=== PATIENT | female | born 1985 | race Caucasian/White ===

== ENCOUNTER 2018-02-20 08:58 | Inpatient (IN) ==
[2018-02-20] MEDS ORDERED: Chlorhexidine Gluconate 2% 1 Pack (2 Cloths) TOPICAL SCH (09:30)
[2018-02-20] MEDS ORDERED: Metoprolol Tartrate 25 MG Tablet PO SCH (09:30)
[2018-02-20] MEDS ORDERED: GENTAMICIN IV.SIG SCH (10:00)
[2018-02-20] MEDS ORDERED: SODIUM CHLOR 0.9% IV.SIG SCH (10:00)
[2018-02-20] MEDS ORDERED: Sodium Chlor 0.9% Inj 500 ML IV.SIG SCH (10:00)
[2018-02-20] MEDS ORDERED: Morphine Inj 4 MG/ML Vial ONE (10:27)
[2018-02-20] MEDS ORDERED: Morphine Inj 4 MG/ML Vial IV.PUSH ONE (10:33)
[2018-02-20] MEDS ORDERED: HYDROmorphone PF Inj 2 MG/ML Vial IV.PUSH PRN (10:58)
[2018-02-20] MEDS: Ciprofloxacin 400 MG/200 ML 400 MG/200 ML PIGGYBACK IV.SIG SCH ×2 (11:00→20:02)
[2018-02-20] MEDS: Sodium Chloride 0.45 % Inj 1,000 ML IV.CONT SCH ×2 (11:15→20:02)
[2018-02-20 12:19] LABS: Hematocrit 37.7 % (35.0-46.0); Hemoglobin 12.2 gm/dL (11.6-15.3); Mean Corpuscular HGB Conc 32.5 % (32.0-36.0); Mean Corpuscular Hemoglobin 28.4 pg (27.0-34.0); Mean Corpuscular Volume 87.6 fL (80.0-100.0); Mean Platelet Volume 10.7 fL (7.0-11.0); Platelet Count 166 th/mm3 (150-450); Red Blood Count 4.31 mil/mm3 (4.00-5.30); Red Cell Distribution Width 14.3 % (11.6-17.2); White Blood Count 12.8 th/mm3 (4.0-11.0)
[2018-02-20 12:39] LABS: Anion Gap 9 meq/L (5-15); Blood Urea Nitrogen 7 mg/dL (7-18); Calcium 8.5 mg/dL (8.5-10.1); Carbon Dioxide 24.5 meq/L (21.0-32.0); Chloride 100 meq/L (98-107); Glomerular Filtration Rate Greater Than 89 mL/min (>89); Glucose,Random 110 mg/dL (74-106); Sodium 133 meq/L (136-145)
[2018-02-20 12:41] LABS: Potassium 4.4 meq/L (3.5-5.1)
[2018-02-20] MEDS: Acetaminophen 325 MG Tablet PO PRN (23:33)
[2018-02-21] MEDS: Sodium Chloride 0.45 % Inj 1,000 ML IV.CONT SCH ×3 (04:02→19:34)
[2018-02-21] MEDS: Ciprofloxacin 400 MG/200 ML 400 MG/200 ML PIGGYBACK IV.SIG SCH ×2 (09:12→20:18)
[2018-02-21 11:31] LABS: Baso % (Auto) 0.4 % (0.0-2.0); Eos % (Auto) 0.2 % (0.0-4.0); Hematocrit 34.9 % (35.0-46.0); Hemoglobin 11.4 gm/dL (11.6-15.3); Lymph # (Auto) 1.4 th/mm3 (1.0-4.8); Lymph % (Auto) 16.8 % (9.0-44.0); Mean Corpuscular HGB Conc 32.7 % (32.0-36.0); Mean Corpuscular Hemoglobin 28.5 pg (27.0-34.0); Mean Corpuscular Volume 87.1 fL (80.0-100.0); Mean Platelet Volume 10.1 fL (7.0-11.0); Mono # (Auto) 1.2 th/mm3 (0.0-0.9); Neut # (Auto) 5.8 th/mm3 (1.8-7.7); Neut % (Auto) 68.6 % (16.0-70.0); Platelet Count 187 th/mm3 (150-450); Red Cell Distribution Width 14.5 % (11.6-17.2); White Blood Count 8.5 th/mm3 (4.0-11.0)
--- NOTE | 2018-02-21 14:27 | P.PNURO ---
Subjective Patient symptoms today: Pt seen and examined. Fever overnight. Still not feeling well. UCx pending Objective Vital Signs: Vital Signs 02/20/18 14:31 02/20/18 20:38 02/21/18 00:05 Temperature 99.6 F 100.2 F H Pulse Rate 93 H 96 H Respiratory Rate 16 16 18 Blood Pressure 106/55 L 123/57 L Pulse Oximetry 96 94 L 02/21/18 00:09 02/21/18 01:23 02/21/18 04:34 Temperature 102.6 F H 101.1 F H 98.6 F Pulse Rate 20 L 85 Respiratory Rate 20 20 Blood Pressure 131/70 118/56 L Pulse Oximetry 98 98 02/21/18 06:05 02/21/18 08:00 02/21/18 12:00 Temperature 97.8 F 98.5 F Pulse Rate 83 87 Respiratory Rate 20 19 19 Blood Pressure 100/58 L 119/75 Pulse Oximetry 99 99 Intake & Output 02/20/18 02/21/18 02/21/18 18:59 06:59 18:59 Intake Total 456 / 456 2680 / 2680 Output Total 350 / 350 350 / 350 150 / 150 Balance 106 / 106 2330 / 2330 -150 / -150 Weight 129.9 kg 126.5 kg Intake: IV 256 / 256 2200 / 2200 1/2 Normal Saline Inj 1,000 ML 2000 / 2000 @ 125 mls/hr IV.CONT .Q8H [facility] Rx#:[id number] Ampicillin Inj 1,000 MG In NS 100 / 100 Inj 100 ML @ 400 mls/hr IV.SIG [employer] [facility] Rx#:[id number] Cipro 400 MG/200 ML Inj 400 mg 200 / 200 In 200 ml @ 200 mls/hr IV.SIG Q12HR [facility] Rx#:[id number] Gentamicin Inj 240 MG In NS Inj 106 / 106 100 ML @ 212 mls/hr IV.SIG [employer] [facility] Rx#:[id number] LR 1000 mL Inj 1,000 ML @ 30 50 / 50 mls/hr IV.SIG .Q24H [facility] Rx#: [id number] Oral 200 / 200 480 / 480 Output: Wound Drainage 350 / 350 350 / 350 150 / 150 Right Lower Back 350 / 350 350 / 350 150 / 150 Other: # Voids 2 Date of Last Bowel Movement 02/19/18 # Bowel Movements 0 Weight On Admission 129.9 kg Result Diagrams: 02/21/18 10:41 02/20/18 11:40 Medications and IVs: Active Medications Generic Name Dose Route Start Last Admin Trade Name Freq PRN Reason Stop Dose Admin Acetaminophen 650 mg 02/20/18 11:01 02/20/18 23:33 Tylenol PO 02/24/18 23:59 650 mg Q4H PRN Administration temp >100.6 Chlorhexidine Gluconate 3 pack 02/20/18 09:30 02/20/18 09:20 Chlorhexidine 2% Cloth TOPICAL 02/23/18 09:30 3 pack [employer] [facility] Administration Hydromorphone HCl 2 mg 02/20/18 10:58 02/20/18 23:34 Dilaudid Pf Inj IV.PUSH 02/23/18 23:59 2 mg Q4H PRN Administration PAIN 6-10;IF UNABLE TO TAKE PO Ampicillin Sodium 1,000 mg/ 100 mls @ 400 mls/hr 02/20/18 10:00 02/20/18 10: 52 Sodium Chloride IV.SIG Infused [employer] [facility] Infusion Gentamicin Sulfate 240 mg/ 106 mls @ 212 mls/hr 02/20/18 10:00 02/20/18 10:45 Sodium Chloride IV.SIG Infused [employer] [facility] Infusion Lactated Ringer's 1,000 mls @ 30 mls/hr 02/20/18 09:30 02/20/18 14:52 Lr 1000 Ml Inj IV.SIG 02/23/18 09:30 Infused .Q24H [facility] Sodium Chloride 500 mls @ 30 mls/hr 02/20/18 10:00 Ns Inj IV.SIG 02/23/18 09:30 .Q10H [facility] Ciprofloxacin/Dextrose 400 mg in 200 mls @ 200 mls/hr 02/20/18 11:00 09:12 Cipro 400 Mg/200 Ml Inj IV.SIG 100 mls/hr Q12HR [facility] Administration Sodium Chloride 1,000 mls @ 125 mls/hr 02/20/18 11:15 02/21/18 04:02 1/2 Normal Saline Inj IV.CONT 125 mls/hr .Q8H [facility] Administration Metoprolol Tartrate 25 mg 02/20/18 09:30 02/20/18 09:54 Lopressor PO 02/23/18 09:30 Not Given [employer] [facility] Oxycodone/Acetaminophen 1 tab 02/20/18 10:59 02/21/18 14:24 Percocet 7.5/325 Mg PO 02/23/18 23:59 1 tab Q4H PRN Administration ABDOMINAL PAIN Povidone Iodine 1 applicatio 02/20/18 09:30 02/20/18 09:54 Betadine 5% Antisepsis Kit EACH NARE 02/23/18 09:30 1 applicatio [employer] [facility] Administration Objective Remarks: Abd:soft,nt,nd Right PCNT: blood tinged. Assessment and Plan - Plan 32 y.o female with s/p right PCNT with fever Continue IV ABx
[2018-02-22] MEDS: Sodium Chloride 0.45 % Inj 1,000 ML IV.CONT SCH ×4 (00:38→22:04)
[2018-02-22] MEDS: Ciprofloxacin 400 MG/200 ML 400 MG/200 ML PIGGYBACK IV.SIG SCH (08:08)
--- NOTE | 2018-02-22 13:28 | P.PNURO ---
Subjective Patient symptoms today: Complains of nausea Reports right nephrostomy tube has been draining well with clearing output Denies fever overnight Objective Vital Signs: Vital Signs 02/21/18 16:00 02/21/18 20:00 02/22/18 00:00 Temperature 97.9 F 99 F 99.1 F Pulse Rate 80 82 84 Respiratory Rate 19 18 20 Blood Pressure 116/54 L 115/57 L 109/57 L Pulse Oximetry 99 97 96 02/22/18 04:00 02/22/18 08:00 02/22/18 12:00 Temperature 98.4 F 97.7 F 97.5 F L Pulse Rate 73 117 H 72 Respiratory Rate 16 20 18 Blood Pressure 111/61 123/72 124/76 Pulse Oximetry 97 99 99 Intake & Output 02/21/18 02/22/18 02/22/18 18:59 06:59 18:59 Intake Total 2120 / 2120 1935 / 1935 1400 / 1400 Output Total 300 / 300 200 / 200 Balance 1820 / 1820 1735 / 1735 1400 / 1400 Weight 129.6 kg Intake: IV 1000 / 1000 1200 / 1200 1400 / 1400 1/2 Normal Saline Inj 1,000 ML 1000 / 1000 1000 / 1000 1000 / 1000 @ 125 mls/hr IV.CONT .Q8H [facility] Rx#:[id number] Cipro 400 MG/200 ML Inj 400 mg 200 / 200 400 / 400 In 200 ml @ 200 mls/hr IV.SIG Q12HR [facility] Rx#:[id number] Oral 1120 / 1120 735 / 735 Output: Wound Drainage 300 / 300 200 / 200 Right Lower Back 300 / 300 200 / 200 Other: # Voids 8 2 Date of Last Bowel Movement 02/19/18 Result Diagrams: 02/21/18 10:41 02/20/18 11:40 Other Results: Urine culture ESBL positive E. coli Medications and IVs: Active Medications Generic Name Dose Route Start Last Admin Trade Name Freq PRN Reason Stop Dose Admin Acetaminophen 650 mg 02/20/18 11:01 02/20/18 23:33 Tylenol PO 02/24/18 23:59 650 mg Q4H PRN Administration temp >100.6 Chlorhexidine Gluconate 3 pack 02/20/18 09:30 02/20/18 09:20 Chlorhexidine 2% Cloth TOPICAL 02/23/18 09:30 3 pack [employer] [facility] Administration Hydromorphone HCl 2 mg 02/20/18 10:58 02/20/18 23:34 Dilaudid Pf Inj IV.PUSH 02/23/18 23:59 2 mg Q4H PRN Administration PAIN 6-10;IF UNABLE TO TAKE PO Lactated Ringer's 1,000 mls @ 30 mls/hr 02/20/18 09:30 02/22/18 09:43 Lr 1000 Ml Inj IV.SIG 02/23/18 09:30 Not Given .Q24H [facility] Sodium Chloride 500 mls @ 30 mls/hr 02/20/18 10:00 Ns Inj IV.SIG 02/23/18 09:30 .Q10H [facility] Sodium Chloride 1,000 mls @ 125 mls/hr 02/20/18 11:15 02/22/18 09:45 1/2 Normal Saline Inj IV.CONT Infused .Q8H [facility] Infusion Ertapenem 1,000 mg/ Sodium 100 mls @ 100 mls/hr 02/22/18 14:00 Chloride IV.SIG Q24H [facility] Metoprolol Tartrate 25 mg 02/20/18 09:30 02/20/18 09:54 Lopressor PO 02/23/18 09:30 Not Given [employer] [facility] Ondansetron HCl 4 mg 02/22/18 12:49 Zofran Inj IV.PUSH Q6H PRN NAUSEA Oxycodone/Acetaminophen 1 tab 02/20/18 10:59 02/22/18 08:08 Percocet 7.5/325 Mg PO 02/23/18 23:59 1 tab Q4H PRN Administration ABDOMINAL PAIN Povidone Iodine 1 applicatio 02/20/18 09:30 02/20/18 09:54 Betadine 5% Antisepsis Kit EACH NARE 02/23/18 09:30 1 applicatio [employer] [facility] Administration Objective Remarks: Abd:soft,nt,nd Right PCNT: Usha Extremities well-perfused, nontender Assessment and Plan - Assessment (1) Renal calculus, right Code(s): N20.0 - Calculus of kidney Status: Acute - Plan Urologic impression: 32 y.o female with right renal calculus s/p right PCNT with ESBL positive E. coli infection. Plan: 1. Ertapenem 1 g IV every 24 hours 2. DC Cipro, ampicillin and gentamicin 3. Continue with analgesic medication 4. Continue with antinausea medication 5. Continue with right nephrostomy tube to gravity drainage 6. Will eventually require right percutaneous nephrolithotomy.
[2018-02-23] MEDS: Sodium Chloride 0.45 % Inj 1,000 ML IV.CONT SCH ×3 (05:25→21:38)
--- NOTE | 2018-02-23 10:51 | P.PNURO ---
Subjective Patient symptoms today: Reports feeling much better today. Denies nausea/vomiting Has been afebrile. Reports right nephrostomy tube has been draining well. Objective Vital Signs: Vital Signs 02/22/18 12:00 02/22/18 13:35 02/22/18 16:00 Temperature 97.5 F L 97.7 F Pulse Rate 72 70 Respiratory Rate 18 17 18 Blood Pressure 124/76 121/71 Pulse Oximetry 99 100 02/22/18 23:07 02/23/18 00:00 02/23/18 08:00 Temperature 98.1 F 98.5 F 97.3 F L Pulse Rate 75 86 58 L Respiratory Rate 18 20 16 Blood Pressure 106/66 126/59 L 116/66 Pulse Oximetry 100 100 100 Intake & Output 02/22/18 02/23/18 02/23/18 18:59 06:59 18:59 Intake Total 2700 / 2700 2000 / 1999 Output Total 210 / 210 200 / 200 Balance 2490 / 2490 1800 / 1800 Weight 132.9 kg Intake: IV 1500 / 1500 1999 / 1999 1/2 Normal Saline Inj 1,000 ML 1000 / 1000 2000 / 2000 @ 125 mls/hr IV.CONT .Q8H [facility] Rx#:[id number] Cipro 400 MG/200 ML Inj 400 mg 400 / 400 In 200 ml @ 200 mls/hr IV.SIG Q12HR [facility] Rx#:[id number] INVanz Inj 1,000 MG In NS Inj 100 / 100 100 ML @ 100 mls/hr IV.SIG Q24H [facility] Rx#:[id number] Oral 1200 / 1200 Output: Wound Drainage 210 / 210 200 / 200 Right Lower Back 210 / 210 200 / 200 Other: # Voids 4 2 Date of Last Bowel Movement 02/19/18 02/18/18 Result Diagrams: 02/21/18 10:41 02/20/18 11:40 Medications and IVs: Active Medications Generic Name Dose Route Start Last Admin Trade Name Freq PRN Reason Stop Dose Admin Acetaminophen 650 mg 02/20/18 11:01 02/20/18 23:33 Tylenol PO 02/24/18 23:59 650 mg Q4H PRN Administration temp >100.6 Hydromorphone HCl 2 mg 02/20/18 10:58 02/20/18 23:34 Dilaudid Pf Inj IV.PUSH 02/23/18 23:59 2 mg Q4H PRN Administration PAIN 6-10;IF UNABLE TO TAKE PO Sodium Chloride 1,000 mls @ 125 mls/hr 02/20/18 11:15 02/23/18 05:25 1/2 Normal Saline Inj IV.CONT 125 mls/hr .Q8H [facility] Administration Ertapenem 1,000 mg/ Sodium 100 mls @ 100 mls/hr 02/22/18 14:00 02/22/18 15:01 Chloride IV.SIG Infused Q24H [facility] Infusion Ondansetron HCl 4 mg 02/22/18 12:49 Zofran Inj IV.PUSH Q6H PRN NAUSEA Oxycodone/Acetaminophen 1 tab 02/20/18 10:59 02/23/18 05:23 Percocet 7.5/325 Mg PO 02/23/18 23:59 1 tab Q4H PRN Administration ABDOMINAL PAIN Objective Remarks: Abd:soft,nt,nd Right PCNT: Usha Extremities well-perfused, nontender Assessment and Plan - Assessment (1) Renal calculus, right Code(s): N20.0 - Calculus of kidney Status: Acute - Plan Urologic impression: 32 y.o female with right renal calculus s/p right PCNT with ESBL positive E. coli infection. Plan: 1. Continue with ertapenem 1 g IV every 24 hours 2. Continue with analgesic medication 3. Continue with antinausea medication 4. Continue with right nephrostomy tube to gravity drainage 5. Will eventually require right percutaneous nephrolithotomy.
[2018-02-24] MEDS: Sodium Chloride 0.45 % Inj 1,000 ML IV.CONT SCH ×2 (06:26→15:17)
--- NOTE | 2018-02-24 08:23 | P.PNURO ---
Subjective Patient symptoms today: Pt is much better today. UCx with ESBL E.coli positive Objective Vital Signs: Vital Signs 02/23/18 12:00 02/23/18 16:00 02/23/18 20:00 Temperature 97.5 F L 97.5 F L 97.9 F Pulse Rate 73 72 73 Respiratory Rate 16 16 18 Blood Pressure 121/79 131/62 115/59 L Pulse Oximetry 100 100 98 02/24/18 00:00 Temperature 97.7 F Pulse Rate 66 Respiratory Rate 18 Blood Pressure 110/59 L Pulse Oximetry 98 Intake & Output 02/23/18 02/24/18 02/24/18 18:59 06:59 18:59 Intake Total 2500 / 2500 1999 Output Total 225 / 225 210 / 210 Balance 2275 / 2275 1999 -210 / -210 Weight 133.9 kg Intake: IV 1100 / 1100 1999 1/2 Normal Saline Inj 1,000 ML 1000 / 1000 1999 @ 125 mls/hr IV.CONT .Q8H [facility] Rx#:[id number] INVanz Inj 1,000 MG In NS Inj 100 / 100 100 ML @ 100 mls/hr IV.SIG Q24H [facility] Rx#:[id number] Oral 1400 / 1400 Output: Wound Drainage 225 / 225 210 / 210 Right Lower Back 225 / 225 210 / 210 Other: # Voids 6 1 1 Result Diagrams: 02/21/18 10:41 02/20/18 11:40 Medications and IVs: Active Medications Generic Name Dose Route Start Last Admin Trade Name Freq PRN Reason Stop Dose Admin Acetaminophen 650 mg 02/20/18 11:01 02/20/18 23:33 Tylenol PO 02/24/18 23:59 650 mg Q4H PRN Administration temp >100.6 Sodium Chloride 1,000 mls @ 125 mls/hr 02/20/18 11:15 02/24/18 06:26 1/2 Normal Saline Inj IV.CONT 125 mls/hr .Q8H [facility] Administration Ertapenem 1,000 mg/ Sodium 100 mls @ 100 mls/hr 02/22/18 14:00 02/23/18 15:17 Chloride IV.SIG Infused Q24H [facility] Infusion Ondansetron HCl 4 mg 02/22/18 12:49 Zofran Inj IV.PUSH Q6H PRN NAUSEA Objective Remarks: Abd:soft,nt,nd Right PCNT: Usha Extremities well-perfused, nontender Abd:soft,nt,nd Assessment and Plan - Assessment (1) Renal calculus, right Code(s): N20.0 - Calculus of kidney Status: Acute - Plan Urologic impression: 32 y.o female with right renal calculus s/p right PCNT with ESBL positive E. coli infection. Plan: 1. Continue with ertapenem 1 g IV every 24 hours 2. Continue with analgesic medication 3. Continue with antinausea medication 4. Continue with right nephrostomy tube to gravity drainage 5. Will eventually require right percutaneous nephrolithotomy. 02/24 E. coli ESBL IR for picc line ID consult today
--- NOTE | 2018-02-24 11:59 | P.DCO ---
- Diagnosis (1) Renal calculus, right Status: Acute (2) Right kidney stone Status: Acute - Physical Therapy Order: Evaluate and treat - Occupational Therapy Order: Evaluate and treat - Home Health Nursing Order: Wound care and dressing changes, IV medication administration Instructions: change dressing every other day to PCNT Invanz 1 gram IV Q24 hours for 10 days - Home Health Aide Order: To assist in: Bathing and personal care - Case Management Consult Yes - Certification I have seen patient Linda Bellamy on 02/24/18. My clinical findings support the need for the requested home health care services because: Care of Right nephrostomy tube Administration of IV ABX Infection with risk of complications I certify that my clinical findings support that this patient is homebound because: Finished in hospital care Post-op weakness
--- NOTE | 2018-02-24 13:31 | P.CONID ---
History of Present Illness Service: ID Consult date: 02/24/18 Requesting Physician: Eddi Hi Reason for Consult: ESBL+ E.coli UTI Primary Care Provider: No Primary Care Physician History of Present Illness: 32 yo female with nephrolithiasis, recurrent UTIs and R kidney staghorn stone s/p R nephrostomy placement 1 week ago was supposed to have lithothripsy on but developped high fevers up to 102 and procedure was cancelled Pt also c/o R side pain she was admitted to the hospital, UA abnormal with , urine culture with ESBL + e.coli. Pt started on Invanz Isolate is R to cipro Pt feels better, she is afebrile and wants to be discharged family hx: non contributory no h/o kidney stones Review of Systems All other systems reviewed negative except as stated in HPI PMFSH - History History Provided By: Patient - Medical History Medical History: Medical History (Last Reviewed 02/24/18 @ 13:23 by Noemi Felipe MD) Chronic UTI History of eustachian tube dysfunction Kidney stones Thyroid disease - Surgical History Surgical History: Surgical History (Last Reviewed 02/24/18 @ 13:24 by Noemi Felipe MD) History of tonsillectomy and adenoidectomy - Tobacco History Second Hand Smoke Exposure: No Smoking Status: Never smoker - Alcohol History How Often Do You Have a Drink Containing Alcohol: Monthly or less - Substance Use History Substance History: No History of Abuse - Travel History Recent Travel in the [place] Within the Last 8 Weeks: No Recent Travel Out of the Country Within the Last 8 Weeks: No Medications and Allergies Active Medications: Active Medications Acetaminophen (Tylenol) 650 mg PO Q4H PRN PRN Reason: temp >100.6 Stop: 02/24/18 23:59 Last Admin: 02/20/18 23:33 Dose: 650 mg Sodium Chloride (1/2 Normal Saline Inj) 1,000 mls @ 125 mls/hr IV.CONT .Q8H [facility] Last Admin: 02/24/18 06:26 Dose: 125 mls/hr Ertapenem 1,000 mg/ Sodium (Chloride) 100 mls @ 100 mls/hr IV.SIG Q24H [facility] Last Infusion: 02/23/18 15:17 Dose: Infused Ondansetron HCl (Zofran Inj) 4 mg IV.PUSH Q6H PRN PRN Reason: NAUSEA Allergies Allergy/AdvReac Type Severity Reaction Status Date / Time Sulfa (Sulfonamide Allergy Severe Blister Verified 02/20/18 09:11 Antibiotics) Home Medications Medication Instructions Recorded Confirmed Type No Known Home Medications 02/14/18 02/20/18 History Exam Vital signs: Vital Signs 02/23/18 16:00 02/23/18 20:00 02/24/18 00:00 Temperature 97.5 F L 97.9 F 97.7 F Pulse Rate 72 73 66 Respiratory Rate 16 18 18 Blood Pressure 131/62 115/59 L 110/59 L Pulse Oximetry 100 98 98 02/24/18 08:00 02/24/18 12:00 Temperature 97.7 F 97.4 F L Pulse Rate 61 68 Respiratory Rate 18 17 Blood Pressure 123/58 L 131/74 Pulse Oximetry 98 99 Intake & Output 02/23/18 02/24/18 02/24/18 18:59 06:59 18:59 Intake Total 2500 / 2500 1999 Output Total 225 / 225 210 / 210 Balance 2275 / 2275 1999 -210 / -210 Weight 133.9 kg Intake: IV 1100 / 1100 1999 1/2 Normal Saline Inj 1,000 ML 1000 / 1000 1999 @ 125 mls/hr IV.CONT .Q8H [facility] Rx#:[id number] INVanz Inj 1,000 MG In NS Inj 100 / 100 100 ML @ 100 mls/hr IV.SIG Q24H [facility] Rx#:[id number] Oral 1400 / 1400 Output: Wound Drainage 225 / 225 210 / 210 Right Lower Back 225 / 225 210 / 210 Other: # Voids 6 1 1 - Constitutional no acute distress, morbidly obese - Routine HEENT Exam Head: Present: normocephalic, atraumatic Eye: Present: EOMI, PERRL ENT: Present: mucous membranes moist, oropharynx clear, dentition normal - Routine Neck Exam Present: supple, full ROM - Routine Respiratory Exam Present: decreased breath sounds (due to habitus), CTA bilaterally - Routine Cardiovascular Exam Present: RRR, S1, S2 Comments: no murmurs, rubs or gallops - Routine Abdominal Exam Present: soft, normoactive bowel sounds Comments: not tender, not distended no organomegaly/masses - Routine Exam Comments: R nephrostomy in place with clear very light yellow urine + prominent R CVA tenderness - Routine Extremities Exam Comments: no cyanosis, clubbing, edema - Routine Skin Exam Present: intact, dry, warm Comments: no rash - Routine Neurological Exam Present: alert, oriented X3, CN II-XII intact, moving all extremities, vision grossly intact, hearing grossly intact, normal speech - Routine Psychiatric Exam Present: normal affect, normal thought process, cooperative Results - Labs CBC & Chem 7: 02/21/18 10:41 02/20/18 11:40 Labs: 02/20/18 22:50 Clean Catch Urine Urine Culture - Final Escherichia coli ESBL positive Assessment and Plan - Plan ESBL + Ec.coli UTI R to levaquine Pt is allergic to sulfa Complicated UTI with R sided staghorn kidney stone sp nephrostomy Fever, leukocytosis, cw pyelonephritis 14 days of Ertapenem via PICC or midline OPAT with [facility] OK to dc form ID [id number] lamar [place]
--- NOTE | 2018-02-24 13:39 | P.DCO ---
Post Hospital Infusion Therapy Location of Infusion Therapy: Home Health Care IV Infusion Order Patient Weight: 133.9 kg - Administer Medication Ertapenem Dose: 1 gram IV Directions: q 24 hours Start Treatment: 02/25/18 Stop Treatment: 03/07/18 - Additional Information Venous Access: Other (midline) Additional Instructions: [x] Peripheral flush and dressing changes per protocol [x] Implanted port and central manager online: * Implanted port: 10 ml Normal Saline followed by 5 ml Heparin 100 units/ml Heparin flush after each use and monthly to maintain. [] May leave port accessed during therapy. [] May leave peripheral site accessed for duration of therapy. [x] If patient has SOB or respiratory distress, check oxygen saturation. If less than 90% or clinical signs of respiratory distress, administer oxygen at 2 L/min. via nasal cannula and notify physician. [x] Anaphylaxis/Reaction orders: * Stop infusion. * Keep IV line open with saline flush. * Notify physician. * Monitor vital signs every 15 minutes until symptoms resolve. * Check Oxygen saturation; Oxygen at 2 L/min. via nasal cannula if less than 90% or clinical signs of respiratory distress. * Administer diphenhydramine (Benadryl) 25 mg IV STAT, (unless patient has received as pre-med). May repeat once, if necessary. * Solu-Cortef 250 mg IVP over 30-60 seconds, use 100 mg vials for each dissolution. * Epinephrine (1mg/1 ml) 0.3 mg subcutaneously or IVP now with any signs of respiratory distress. * Check with physician for new additional pre-med orders if patient is re- challenged or re-treated. [x] May remove PICC line when treatment complete, after confirming with Physician. [x] If the patient is admitted to the hospital, the ED, or transferred via [facility] , complete transfer form including medication reconciliation order sheet. Weekly Labs: CBC w/diff, Creatinine Allergies Sulfa (Sulfonamide Antibiotics) Allergy (Severe, Verified 02/20/18 09:11) Blister
[2018-02-24] MEDS: Acetaminophen 325 MG Tablet PO PRN (16:33)
--- NOTE | 2018-02-24 17:01 | P.DCO ---
- Physical Therapy Order: Evaluate and treat - Home Health Nursing Order: Wound care and dressing changes - Case Management Consult Yes - Certification I have seen patient Linda Bellamy on 02/24/18. My clinical findings support the need for the requested home health care services because: Infection with risk of complications I certify that my clinical findings support that this patient is homebound because: Post-op weakness Attestation/Additional Detail: Change from HH aide to HH nurse
--- NOTE | 2018-03-11 16:52 | MD ---
cc: Eddi Hi DO DATE OF DISCHARGE: 02/24/2018 HOSPITAL COURSE: Ms. Bellamy is a pleasant 32-year-old female with a history of a right staghorn calculus who underwent right percutaneous nephrostomy tube per special procedures on 02/20/2018. The following day, she was admitted to undergo an elective percutaneous nephrolithotomy, but due to fever this was canceled and she did not undergo any urologic procedure. She was admitted for IV antibiotics, which she received an ID consult and she was recommended to be started on via PICC line. PICC line was then placed . She received IV antibiotics through the PICC line and then was discharged on 02/24/2018. At the time of discharge, she was given instructions concerning diet, exercise, and medications if she was to continue IV as an outpatient therapy and then she was to be rescheduled for her right percutaneous nephrolithotomy in the near future. She tolerated her stay in the hospital well and was discharged in stable condition. She will not need an operative report. DO MERRITT Angulo/ian/bry , 02:30 PM , 02:35 PM
--- NOTE | 2018-03-19 15:38 | MB ---
cc: Eddi Hi DO DATE: 02/20/2018 HISTORY OF PRESENT ILLNESS: This is a 32-year-old female who presented with a history of a large right renal calculus, over 2 cm in size, who underwent a percutaneous nephrostomy tube placement yesterday by interventional radiology. She presented today to undergo a right percutaneous nephrolithotomy, but due to the fact that she was having fevers up to 102 and appeared septic, the decision was made then to admit the patient to receive IV antibiotics. ALLERGIES: BACTRIM, SULFA. MEDICATIONS: 1. Ibuprofen. 2. Tylenol. She denies any other medical problems other than recent kidney stones. No surgical history is noted. FAMILY HISTORY: Noted for diabetes, heart disease, stroke, high cholesterol, prostate cancer on her father's side. SOCIAL HISTORY: She denies smoking, drinking, or using drugs. REVIEW OF SYSTEMS: Notes fever and chills, right-sided flank pain. Denies abdominal pain. Denies chest pain, shortness of breath, gait disturbances, bleeding disorders, headaches. Remaining review of systems were reviewed and were negative. PHYSICAL EXAMINATION: VITAL SIGNS: Temperature was 101 in the preoperative area, she was tachycardic at 102, blood pressure 110/59, respiratory rate was 16, and a pulse oximetry 98%. GENERAL: She is an obese 32-year-old female in no acute distress. HEENT: Normocephalic, atraumatic. Pupils equal, round, reactive to light. Extraocular movements intact. NECK: Supple. HEART: Regular rate and rhythm. LUNGS: Clear. ABDOMEN: Soft, nontender, nondistended. Right nephrostomy tube is draining pink-colored urine. EXTREMITIES: Show no cyanosis, clubbing, edema. ASSESSMENT: This is a 32-year-old female status post right percutaneous nephrostomy tube placement, now with fever and chills. We will obtain ID consult, will admit. IV fluids, IV antibiotics. DO MERRITT Angulo/kesha , 03:10 PM , 03:17 PM
== END 2018-02-24 19:28 | disposition home health service (06) ==
LOC: HSDC 08:58 → HSDI 10:53 → N07 16:14
PROVIDERS: ADMIT Urology; ATTEND Urology

== ENCOUNTER 2018-03-14 07:19 | Inpatient (IN) ==
[2018-03-14] MEDS ORDERED: Chlorhexidine Gluconate 2% 1 Pack (2 Cloths) TOPICAL ONE (07:58)
[2018-03-14] MEDS ORDERED: Metoprolol Tartrate 25 MG Tablet PO ONE (07:58)
[2018-03-14] MEDS ORDERED: Sodium Chlor 0.9% Inj 500 ML IV.SIG SCH (08:00)
[2018-03-14] MEDS ORDERED: GENTAMICIN IV.SIG SCH (08:00)
[2018-03-14] MEDS ORDERED: SODIUM CHLORIDE 0.9% IV.SIG SCH (08:00)
[2018-03-14] MEDS ORDERED: SODIUM CHLOR 0.9% IV.SIG SCH ×2 (08:00→17:00)
[2018-03-14] MEDS ORDERED: AMPICILLIN IV.SIG SCH ×2 (08:00→17:00)
[2018-03-14 08:11] LABS: Baso % (Auto) 0.6 % (0.0-2.0); Eos # (Auto) 0.1 th/mm3 (0.0-0.4); Eos % (Auto) 1.4 % (0.0-4.0); Hematocrit 34.7 % (35.0-46.0); Hemoglobin 11.2 gm/dL (11.6-15.3); Lymph # (Auto) 2.1 th/mm3 (1.0-4.8); Lymph % (Auto) 33.9 % (9.0-44.0); Mean Corpuscular HGB Conc 32.3 % (32.0-36.0); Mean Corpuscular Hemoglobin 28.1 pg (27.0-34.0); Mean Platelet Volume 10.3 fL (7.0-11.0); Mono # (Auto) 0.7 th/mm3 (0.0-0.9); Mono % (Auto) 11.1 % (0.0-8.0); Neut # (Auto) 3.2 th/mm3 (1.8-7.7); Platelet Count 216 th/mm3 (150-450); Red Blood Count 3.99 mil/mm3 (4.00-5.30); Red Cell Distribution Width 14.6 % (11.6-17.2); White Blood Count 6.1 th/mm3 (4.0-11.0)
[2018-03-14] MEDS ORDERED: Glycopyrrolate Inj 1 MG/5 ML Syringe IV.PUSH ONE (10:00)
[2018-03-14] MEDS ORDERED: Lidocaine PF 1% Inj 5 ML Syringe OTHER ONE (10:00)
[2018-03-14] MEDS ORDERED: Neostigmine Inj 5 MG/5 ML Syringe IV.PUSH ONE (10:00)
[2018-03-14] MEDS ORDERED: Thrombin Topical Soln 5,000 UNIT Vial TOPICAL ONE (13:32)
--- NOTE | 2018-03-14 14:49 | P.OP ---
- Preoperative Diagnosis (1) Renal calculus, right - Postoperative Diagnosis (1) Renal calculus, right Date of procedure: 03/14/18 Procedure: Right Percutaneous Nephrolithotomy; Antegrade Study, Laser lithotripsy of right renal stone; Cystoscopy; Right retrograde pyelogram; right JJ stent insertion. Anesthesia: GETA Surgeon: Eddi Hi DO Estimated blood loss (mL): 250 Operation and Findings: 32-year-old female with a history of a large right renal stone who underwent placement of a percutaneous nephrostomy tube approximately 3 weeks ago. She subsequently developed fever and chills and surgery is postponed at that time. She presents again to undergo right percutaneous nephrolithotomy. Risk and benefits were discussed preoperatively she was willing to proceed. Patient was brought to the operating room and identified by myself as Linda Bellamy. She was left on the stretcher and intubated. She was then placed on the operating table in the prone position with all areas appropriately padded. The C arm was brought into position and the stone was visualized slightly. Attempt was made to pass a Amplatz Super Stiff wire and a sensor wire into the nephrostomy tube and down the ureter. I was unable to get placement of the wire to get down the ureter. I was able to get the wire into the kidney however. Then the renal max dilator system was then utilized to incise the opening into the kidney. This was done up to a pressure of 14 mmHg and held for 2 minutes. The sheath was then slid over the balloon dilator. Once the nephroscope entered into the kidney I was unable to get to the area of the stone. 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 I used the flexible cystoscope but due to its inability to downward deflect I was unable to utilize this instrument. I then needed to utilize the flexible ureteroscope and was able to get to the area of the infundibular stenosis in the area of the stone. Using a 365 m laser fiber I was able to fragment of some portions of the stone. The stone was noted to be very hard to fragment. Settings were 1000 and 1400 on the laser. Once the stone was broken up, attempt was made to pass the area through the stone to get down to where the UPJ and the ureter was. This was unsuccessful. This was attempted multiple times with the scope as well as with the sensor wire. At this time, antegrade nephrostogram was performed demonstrating that the sheath was not in the correct position any longer and outside the kidney. Due to the fact that there was not much bleeding , I was able to use FloSeal to the area of the incision site to provide hemostasis. The wound was closed with 2, 2-0 silk sutures. Pressure dressings were applied to this area with tape and she was placed in the dorsolithotomy position on to a new operating table. She was then reprepped and draped in the usual sterile fashion. A 22 Beninese cystoscope was then inserted the bladder and then a 5 Beninese opening catheter was inserted up the ureter to perform retrograde study. The stone was located at the area of the UPJ blocking the lateral portions of the kidney. Using a angled Glidewire I was able to pass it up through the area of the stone to the lateral aspect of the kidney to provide adequate drainage for the kidney. A 6 Beninese 26 cm stent was then passed over the wire through the area of the stone burden and into the lateral aspect of the kidney. This should provide maximal drainage for the area of the kidney. She will need to undergo right extrapleural lithotripsy as an outpatient after the kidney heals to provide further treatment for her residual stone burden. She tolerated the procedure well and was awoken and transferred recovery in stable condition.
[2018-03-14] MEDS ORDERED: Morphine Inj 4 MG/ML Vial IV.PUSH PRN (14:51)
[2018-03-14] MEDS ORDERED: fentaNYL Citrate Inj 100 MCG/2 ML Ampul ONE (15:11)
[2018-03-14] MEDS ORDERED: *Meperidine Inj 25 MG/ML Vial PERIprocedural Use ONLY ONE (15:17)
[2018-03-14] MEDS: Morphine Inj 4 MG/ML Vial IV.PUSH PRN (19:24)
[2018-03-14] MEDS: Potassium Chloride Inj 10 MEQ in Sodium Chloride 0.45 % Inj 1,000 ML IV.CONT SCH (22:02)
[2018-03-15] MEDS: Morphine Inj 4 MG/ML Vial IV.PUSH PRN ×3 (00:27→21:16)
[2018-03-15] MEDS: Potassium Chloride Inj 10 MEQ in Sodium Chloride 0.45 % Inj 1,000 ML IV.CONT SCH ×2 (04:27→15:47)
[2018-03-15] MEDS: Acetaminophen 325 MG Tablet PO PRN (06:43)
[2018-03-15] MEDS: Gentamicin/NS 80 mg Premix 100 ML IV.SIG SCH ×2 (09:25→17:42)
--- NOTE | 2018-03-15 09:44 | P.PNURO ---
Subjective Patient symptoms today: Pt seen and examined. Feels well. Objective Vital Signs: Vital Signs 03/14/18 14:57 03/14/18 15:00 03/14/18 15:15 Temperature 95 F L Pulse Rate 74 81 68 Respiratory Rate 16 17 19 Blood Pressure 139/75 135/68 123/67 Pulse Oximetry 100 98 98 03/14/18 15:30 03/14/18 15:45 03/14/18 15:52 Temperature 96.1 F L Pulse Rate 57 L 62 Respiratory Rate 17 19 Blood Pressure 127/69 140/78 Pulse Oximetry 99 100 03/14/18 16:00 03/14/18 16:30 03/14/18 17:20 Temperature 97.1 F L 97.5 F L Pulse Rate 66 65 67 Respiratory Rate 19 19 19 Blood Pressure 129/74 156/70 H 147/79 H Pulse Oximetry 98 100 99 03/14/18 18:00 03/14/18 20:00 03/15/18 00:00 Temperature 97.3 F L 97.9 F 98.4 F Pulse Rate 60 57 L 73 Respiratory Rate 16 18 18 Blood Pressure 137/73 133/77 131/80 Pulse Oximetry 100 97 96 03/15/18 04:00 03/15/18 08:00 Temperature 100.7 F H 99.1 F Pulse Rate 99 H 128 H Respiratory Rate 18 16 Blood Pressure 117/56 L 113/55 L Pulse Oximetry 98 94 L Intake & Output 03/14/18 03/15/18 03/15/18 18:59 06:59 18:59 Intake Total 1506 / 1506 300 / 300 Output Total 450 / 450 1150 / 1150 Balance 1056 / 1056 -850 / -850 Weight 130.2 kg 136.2 kg Intake: IV 1206 / 1206 300 / 300 Ampicillin Inj 1 GM In NS Inj 100 / 100 100 ML @ 200 mls/hr IV.SIG PEDIATRIC CRITICAL CARE NURSE KRZYSZTOF Rx#:[id number] Ampicillin Inj 500 MG In NS Inj 300 / 300 100 ML @ 200 mls/hr IV.SIG Q6H KRZYSZTOF Rx#:[id number] Gentamicin Inj 240 MG In NS Inj 106 / 106 100 ML @ 212 mls/hr IV.SIG PEDIATRIC CRITICAL CARE NURSE KRZYSZTOF Rx#:[id number] LR 1000 mL Inj 1,000 ML @ 30 1000 / 1000 mls/hr IV.SIG .Q24H KRZYSZTOF Rx#: [id number] Anesthesia Amount 300 / 300 Output: Estimated Blood Loss 100 / 100 Urine Amount (Catheter) 350 / 350 1150 / 1150 Indwelling Urethral Catheter 350 / 350 1150 / 1150 Other: Date of Last Bowel Movement 03/13/18 03/13/18 Weight On Admission 130.2 kg Result Diagrams: 03/14/18 08:00 Imaging: Impressions Abdomen X-Ray 03/14/18 00:00 CONCLUSION: Partial filling of the collecting system with nonopacification in the lower pole. No evidence of leakage. Medications and IVs: Active Medications Generic Name Dose Route Start Last Admin Trade Name Freq PRN Reason Stop Dose Admin Acetaminophen 650 mg 03/14/18 16:00 03/15/18 06:43 Tylenol PO 650 mg Q4H PRN Administration TEMP>100.4F,PAIN1-10,IRRITABLE Sodium Chloride 500 mls @ 30 mls/hr 03/14/18 08:00 03/15/18 06:25 Ns Inj IV.SIG Not Given .Q10H KRZYSZTOF Potassium Chloride 10 meq/ 1,005 mls @ 100 mls/hr 03/14/18 16:00 03/15/18 09: 25 Sodium Chloride IV.CONT 100 mls/hr .Q10H3M KRZYSZTOF Infusion Ampicillin Sodium 500 mg/ 100 mls @ 200 mls/hr 03/14/18 18:00 03/15/18 06:05 Sodium Chloride IV.SIG Infused Q6H KRZYSZTOF Infusion Gentamicin Sulfate/Sodium Chloride 100 mls @ 200 mls/hr 03/15/18 10:00 09:25 Gentamicin/Ns 80 Mg Premix IV.SIG 200 mls/hr Q8H KRZYSZTOF Administration Miscellaneous Information 0 each 03/14/18 15:10 Misc Nursing Information OTHER 03/15/18 15:09 UNSCH PRN SEE LABEL COMMENTS Morphine Sulfate 4 mg 03/14/18 16:00 03/15/18 05:38 Morphine Inj IV.PUSH 4 mg Q4H PRN Administration SEE LABEL COMMENTS Ondansetron HCl 4 mg 03/14/18 16:00 03/14/18 19:24 Zofran Inj IV.PUSH 4 mg Q6H PRN Administration NAUSEA Oxycodone/Acetaminophen 1 tab 03/15/18 09:42 Percocet 5/325 Mg PO Q6H PRN Acute Pain Objective Remarks: Abd:soft,nt,nd Remhan: urine clear Dressing intact Assessment and Plan - Plan Stable s/p attempted Right PCNL; Right URS with laser litho and stent insertion Continue current Rx Rehman out in AM.
[2018-03-15 10:21] LABS: Hematocrit 33.7 % (35.0-46.0); Hemoglobin 10.7 gm/dL (11.6-15.3); Mean Corpuscular HGB Conc 31.9 % (32.0-36.0); Mean Corpuscular Hemoglobin 27.8 pg (27.0-34.0); Mean Corpuscular Volume 87.2 fL (80.0-100.0); Mean Platelet Volume 9.9 fL (7.0-11.0); Platelet Count 203 th/mm3 (150-450); Red Blood Count 3.86 mil/mm3 (4.00-5.30); White Blood Count 14.4 th/mm3 (4.0-11.0)
[2018-03-16] MEDS: Acetaminophen 325 MG Tablet PO PRN ×2 (00:58→11:17)
[2018-03-16] MEDS: Gentamicin/NS 80 mg Premix 100 ML IV.SIG SCH ×3 (01:48→18:16)
[2018-03-16] MEDS: Potassium Chloride Inj 10 MEQ in Sodium Chloride 0.45 % Inj 1,000 ML IV.CONT SCH ×3 (04:09→18:16)
[2018-03-16] MEDS: Morphine Inj 4 MG/ML Vial IV.PUSH PRN (06:13)
--- NOTE | 2018-03-16 14:09 | P.PNURO ---
Subjective Patient symptoms today: Pt feels well. Ready for discharge. Objective Vital Signs: Vital Signs 03/15/18 16:00 03/15/18 20:00 03/16/18 00:00 Temperature 99.7 F H 99 F 101.4 F H Pulse Rate 104 H 122 H 113 H Respiratory Rate 14 20 20 Blood Pressure 107/60 125/67 107/56 L Pulse Oximetry 99 94 L 98 03/16/18 04:00 03/16/18 08:00 03/16/18 09:30 Temperature 98.1 F 99.3 F Pulse Rate 97 H 98 H Respiratory Rate 20 14 18 Blood Pressure 136/77 108/59 L Pulse Oximetry 97 96 03/16/18 11:47 Temperature Pulse Rate Respiratory Rate 18 Blood Pressure Pulse Oximetry Intake & Output 03/15/18 03/16/18 03/16/18 18:59 06:59 18:59 Intake Total 1905 / 1905 1625 / 1625 200 / 200 Output Total 925 / 925 Balance 980 / 980 1625 / 1625 200 / 200 Weight 134 kg Intake: IV 1405 / 1405 1305 / 1305 200 / 200 KCl Inj 10 MEQ In 1/2 Normal 1005 / 1005 1005 / 1005 Saline Inj 1,000 ML @ 100 mls/ hr IV.CONT .Q10H3M KRZYSZTOF Rx#: [id number] Ampicillin Inj 500 MG In NS Inj 200 / 200 200 / 200 100 / 100 100 ML @ 200 mls/hr IV.SIG Q6H KRZYSZTOF Rx#:[id number] Gentamicin/NS 80 mg Premix 100 200 / 200 100 / 100 100 / 100 ML @ 200 mls/hr IV.SIG Q8H KRZYSZTOF Rx#:[id number] Oral 500 / 500 320 / 320 Output: Urine 925 / 925 Other: # Voids 1,500 Date of Last Bowel Movement 03/13/18 03/13/18 03/13/18 Result Diagrams: 03/15/18 10:00 03/15/18 10:00 Medications and IVs: Active Medications Generic Name Dose Route Start Last Admin Trade Name Freq PRN Reason Stop Dose Admin Acetaminophen 650 mg 03/14/18 16:00 03/16/18 11:17 Tylenol PO 650 mg Q4H PRN Administration TEMP>100.4F,PAIN1-10,IRRITABLE Sodium Chloride 500 mls @ 30 mls/hr 03/14/18 08:00 03/15/18 06:25 Ns Inj IV.SIG Not Given .Q10H KRZYSZTOF Potassium Chloride 10 meq/ 1,005 mls @ 100 mls/hr 03/14/18 16:00 03/16/18 04: 09 Sodium Chloride IV.CONT 100 mls/hr .Q10H3M KRZYSZTOF Administration Ampicillin Sodium 500 mg/ 100 mls @ 200 mls/hr 03/14/18 18:00 03/16/18 11:46 Sodium Chloride IV.SIG Infused Q6H KRZYSZTOF Infusion Gentamicin Sulfate/Sodium Chloride 100 mls @ 200 mls/hr 03/15/18 10:00 09:30 Gentamicin/Ns 80 Mg Premix IV.SIG Infused Q8H KRZYSZTOF Infusion Morphine Sulfate 4 mg 03/14/18 16:00 03/16/18 06:13 Morphine Inj IV.PUSH 4 mg Q4H PRN Administration SEE LABEL COMMENTS Ondansetron HCl 4 mg 03/14/18 16:00 03/14/18 19:24 Zofran Inj IV.PUSH 4 mg Q6H PRN Administration NAUSEA Oxycodone/Acetaminophen 1 tab 03/15/18 09:42 03/16/18 09:00 Percocet 5/325 Mg PO 1 tab Q6H PRN Administration Acute Pain 1-5 Objective Remarks: Abd:soft,nt,nd Rehman: urine clear Dressing intact 03/16 Abd:soft,nt,nd Rehman: urine clear Dressing intact Assessment and Plan - Plan Stable s/p attempted Right PCNL; Right URS with laser litho and stent insertion Continue current Rx Rehman out in AM. 03/16 Stable s/p attempted Right PCNL; Right URS with laser litho and stent insertion D/C home
== END 2018-03-16 19:29 | disposition home or self-care (01) ==
LOC: HSDC 07:19 → HSDI 14:49 → N06 17:58
PROVIDERS: ADMIT Urology; ATTEND Urology